=== PATIENT | male | born 1990 | race Caucasian/White ===

== ENCOUNTER 2022-04-04 15:01 | Emergency (ER) | payer OTHER, SELFPAY ==
[2022-04-04 15:06] VITALS: BP 122/81; PULSE 106; RESP 18; TEMP 36.6; O2SAT 97; BMI 46.9
--- NOTE | 2022-04-04 15:43 | ED_ITS ---
HPI - Extremity Injury (Lower) General Time Seen by Provider: 15:43 Date Seen: 04/04/22 Chief Complaint: Extremity Pain/Injury, Lower Stated Complaint: Knee Injury Time Seen by Provider: 04/04/22 15:43 Source: patient and RN notes reviewed Mode of arrival: ambulatory Limitations: no limitations History of Present Illness HPI Narrative: Jake is a very pleasant 32-year-old male with unknown last tetanus who comes to the emergency room for evaluation regarding right knee injury. Patient was noted to be fishing on the [employer] this afternoon and caught a fish and [place] ground [place] away and he fell onto his right knee. He has been able to bear weight but he has significant discomfort. He feels like he went down in a twisting motion. He sustained an abrasion to his right knee but also has pain along the lateral aspect of his leg. He denied is any numbness or tingling. He denied hitting his head or neck injury. He had no prodromal symptoms prior to the fall. At rest his pain is controlled. He has increased pain with movement. Has not taken anything at this time. Related Data Home Medications Medication Instructions Recorded Confirmed No Known Home Medications 04/04/22 04/04/22 Allergies Allergy/AdvReac Type Severity Reaction Status Date / Time No Known Drug Allergies Allergy Verified 04/04/22 15:11 Review of Systems Narrative: Denies recent illness including chest pain, shortness of breath, cough, fever. Denies numbness or tingling of the extremities. Denies neck pain or headache. [facility] Medical History No significant past medical history Surgical History No significant past surgical history Exam Const: Vital Signs, click to edit/add: Vital Signs - 24 hr 04/04/22 15:06 Temperature 97.8 F Pulse Rate [Pulse Oximeter] 106 H Respiratory Rate 18 Blood Pressure [Ri ght Upper Arm] 122/81 Pulse Oximetry 97 Oxygen Delivery Me thod Room Air Documenting provider has reviewed patient's vital signs: yes Common normals: no apparent distress, oriented x3, no limitations, healthy appearing and alert General appearance: cooperative, comfortable and well kempt HENMT: Common normals: normocephalic, head/scalp atraumatic and external ears normal Head and scalp: normocephalic and atraumatic Face and sinus: normal facial exam External ear: external ears normal Eye: Common normals: PERRL General eye: normal appearance of both eyes Pupil: PERRL Neck & C-Spine: Common normals: full ROM Resp: Common normals: normal respiratory effort and clear to auscultation bilaterally Auscultation: clear to auscultation bilaterally Cardio: Common normals: regular rate and regular rhythm Rate: regular rate Rhythm: regular rhythm Extremity: Other: Examination of the right arm shows superficial abrasion but no difficulty with movement. Right knee shows a half dollar sized area of superficial abrasion. There is some blood at the wound but is currently hemostatic. Surrounding mild erythema extending onto the right knee joint line. Tenderness noted on the fibular head as well as the tibial plateau. Negative anterior or posterior drawer. Distally sensation and motor is intact. Neuro: Common normals: oriented x3 Sensorium/orientation: alert Psych: Appearance: well kempt Course Course Hospital Course: At this time patient is a larger gentleman and sustained direct blow to his right knee in a twisting movement. I do think we should obtain x-rays of the right knee to include the fibular head. A check of tetanus notes that he is not up-to-date Vital Signs Vital signs: Initial Vital Signs Temperature 97.8 F 04/04/22 15:06 Temperature Source Temporal Artery Scan 04/04/22 15:06 Pulse Rate 106 H 04/04/22 15:06 Respiratory Rate 18 04/04/22 15:06 Blood Pressure 122/81 04/04/22 15:06 Blood Pressure Mean 94 04/04/22 15:06 Blood Pressure Position Supine 04/04/22 15:06 Pulse Oximetry 97 04/04/22 15:06 Oxygen Delivery Method 04/04/22 15:06 Vital Signs Temperature 97.8 F 04/04/22 15:06 Pulse Rate 106 H 04/04/22 15:06 Respiratory Rate 18 04/04/22 15:06 Blood Pressure 122/81 04/04/22 15:06 Pulse Oximetry 97 04/04/22 15:06 Oxygen Delivery Method 04/04/22 15:06 Temperature 97.8 F 04/04/22 15:06 Pulse Rate 106 H 04/04/22 15:06 Respiratory Rate 18 04/04/22 15:06 Blood Pressure 122/81 04/04/22 15:06 Pulse Oximetry 97 04/04/22 15:06 Oxygen Delivery Method 04/04/22 15:06 MDM - Extremity Injury (Lower) MDM Narrative Medical decision making narrative: 1. Right knee injury-fortunately no evidence of fracture. Suggest icing ibuprofen and Tylenol as needed. Patient may need to follow-up with orthopedics if he continues have knee discomfort as he may be a candidate for MRI if he does not have improvement. 2. Superficial abrasion-at this time wound is certainly considered at risk given the fact that [place] has known sewage jumped into it. This wound was cleaned. He may use bacitracin to the wound. Recommend keeping this is clean as possible. He is given a handwritten prescription for Keflex 500 mg p.o. t.i.d. x7 days in the event that he noticed increased drainage, fever, increasing redness or signs of infection. 3. Tetanus updated 4. Disposition-patient is discharged home. Return as needed for worsening symptoms and as needed. Imaging Data Right tib-fib: My impression: No acute fracture. Radiologist's impression: No sign of acute osseous injury. Specifically, no sign of injury to the fibular head or proximal fibula. Healed benign fibrous cortical defect or nonossifying fibroma in the lateral distal tibia, of no clinical concern. Discharge Plan Discharge Clinical Impression: Tetanus toxoid inoculation, Injury, knee, Abrasion Patient Disposition: Home, Self-Care Condition: Improved Additional Instructions: Monitor knee for signs of infection. Start Keflex should you have discharge, increasing redness or fever. Seek medical attention for continuing or worsening pain. Return as needed. Prescriptions: No Action No Known Home Medications Follow Up/Referrals: Provider,Not a Local [Primary Care Provider] - Stand Alone Forms: [employer] Info Instructions
--- NOTE | 2022-04-04 15:59 | CRLHL7_ITS ---
For Patients: As a result of the Cures Act, medical imaging exams and procedure reports are released immediately into your electronic medical record. You may view this report before your referring provider. If you have questions, please contact your health care provider. INDICATION: Fibular head point tenderness after twisting injury during fall. COMPARISON: None available. TECHNIQUE: AP and lateral views of the right tibia and fibula were obtained. FINDINGS: There is no sign of fracture, dislocation, or joint effusion. Specifically, there is no sign of fracture of the fibular head or proximal fibular shaft. There is a heterogeneously sclerotic oval region in the lateral aspect of the distal tibial shaft. This is probably a healed nonossifying fibroma or benign fibrous cortical defect, of no clinical concern. The soft tissues are normal in appearance without sign of radio-opaque foreign body. No degenerative disease is seen in the visualized portions of the knee and ankle. IMPRESSION: No sign of acute osseous injury. Specifically, no sign of injury to the fibular head or proximal fibula. Healed benign fibrous cortical defect or nonossifying fibroma in the lateral distal tibia, of no clinical concern. Dictated by Compa Burden MD @ 04/04/2022 5:11:59 PM (Electronically Signed)
[2022-04-04] MEDS: TETANUS/DIPHTH/PERTUSSIS 0.5 ML SYRINGE IM (17:23)
--- NOTE | 2022-04-04 17:31 | ED.NURSE ---
Wounds cleansed on right knee.
== END 2022-04-04 17:45 | disposition home or self-care (01) ==
PROVIDERS: Emergency Provider Family Medicine
DX: S80.211A Abrasion, right knee, initial encounter (principal); X50.1XXA Overexertion from prolonged static or awkward postures, initial encounter
CPT/HCPCS: 73590; 90471; 90715; 99283; 99284